=== PATIENT | male | born 1930 | race Caucasian/White ===

== ENCOUNTER → 2016-12-10 | Outpatient (CLI) | payer MEDICARE, OTHER ==
[2016-12-10 13:36] LABS: EKG EKG PERFORMED
[2016-12-10 15:13] LABS: ALT 30 U/L (21-72); AST 24 U/L (17-59); Alkaline Phosphatase 97 U/L (38-126); Anion Gap 14 mmol/L; Blood Urea Nitrogen 22 mg/dL (9-20); Calcium 9.3 mg/dL (8.4-10.2); Carbon Dioxide 23 mmol/L (22-30); Chloride 105 mmol/L (98-107); Glucose 99 mg/dL (74-99); INR 1.2 (<1.1); Non-African American GFR(MDRD) >60 (>60 ml/min/1.73 sqM); Partial Thromboplastin Time 23.3 sec (22.0-30.0); Potassium 4.4 mmol/L (3.5-5.1); Prothrombin Time 11.9 sec (9.0-12.0); Sodium 142 mmol/L (137-145); Total Bilirubin 0.6 mg/dL (0.2-1.3); Total Protein 6.9 g/dL (6.3-8.2)
[2016-12-10 15:31] LABS: Aty Lym Flag Moderate; CH 31.2; CHCM 31.9; HCT 42.8 % (39.0-53.0); HDW 2.19; HGB 13.7 gm/dL (13.0-17.5); MCH 31.4 pg (25.0-35.0); MCHC 31.9 g/dL (31.0-37.0); MCV 98.4 fL (80.0-100.0); RBC 4.36 m/uL (4.30-5.90); RDW 14.3 % (11.5-15.5); WBC (Perox) 60.62
[2016-12-10 17:51] LABS: Add Differential Manual Differential
[2016-12-10 17:54] LABS: Nucleated Red Blood Cells 0 /100 WBC (0-0); Total Cells Counted 100
[2016-12-10 17:55] LABS: Manual Review Performed; Ovalocytes Present
== END | disposition home or self-care (01) ==
LOC: LABPAT 13:26
PROVIDERS: ATTEND Orthopaedic Surgery
DX: Z01.810 Encounter for preprocedural cardiovascular examination (principal); Z01.812 Encounter for preprocedural laboratory examination
CPT/HCPCS: 80053; 85025; 85610; 85730; 87070; 93005

== ENCOUNTER → 2016-12-23 | Outpatient (CLI) | payer MEDICARE, OTHER | END | disposition home or self-care (01) | LOC: LABPAT 14:40 | PROVIDERS: ATTEND Orthopaedic Surgery | DX: Z01.812 Encounter for preprocedural laboratory examination (principal); R94.31 Abnormal electrocardiogram [ECG] [EKG]; I10 Essential (primary) hypertension; I25.2 Old myocardial infarction; Z85.6 Personal history of leukemia | CPT/HCPCS: 93005 ==

== ENCOUNTER 2016-12-24 05:50 | Inpatient (IN) | payer MEDICARE, OTHER ==
[2016-12-16 16:11] VITALS: BMI 24.3
[~2016-12-24 05:50] MED LIST: ACETAMINOPHEN TAB 500 MG TAB PO ONE; DEXAMETHASONE SOD PHOSPHATE 10 MG/ML 1 ML VIAL IV ONE; HYDROmorphone 1 MG/ML 1 ML SYRINGE IVP PRN; LIDOCAINE 1% 20 ML VIAL (10MG/ML) FOR IV START INTRADERMA PRN; MELOXICAM 7.5 MG TAB PO ONE; MIDAZOLAM 2 MG/2 ML VIAL IV PRN; ONDANSETRON 4 MG/2 ML VIAL IVP ONE; SCOPOLAMINE 1.5MG/72HR PATCH TRANSDERM ONE; TRANEXAMIC ACID 1,000 MG in SODIUM CHLORIDE 0.9% 100 ML IVPB ONE; ceFAZolin 2 GM in SODIUM CHLORIDE 0.9% 100 ML IVPB ONE
[2016-12-24] MEDS ORDERED: ROPIVACAINE 246.25 MG, EPINEPHrine 0.5 MG, KETOROLAC 30 MG, cloNIDine HCL/PF 80 MCG, WA... MISCELLANE ONE ×5 (05:52)
[2016-12-24] MEDS: LACTATED RINGERS 1,000 ML IV SCH ×2 (06:40→19:37)
[2016-12-24] MEDS ORDERED: LIDOCAINE 1% 20 ML VIAL (10MG/ML) FOR IV START INTRADERMA ONE (06:40)
[2016-12-24 06:47] LABS: Amorphous Sediment,Urine Occasional /hpf; Appearance,Urine Turbid (Clear); Bilirubin,Urine Negative (Negative); Glucose,Urine (UA) Negative (Negative); Ketones,Urine Negative (Negative); Leukocyte Esterase,Urine Small (Negative); Mucus,Urine Few /hpf; Nitrite,Urine Negative (Negative); PH, Urine 5.5 (5.0-8.0); Particle Count 57919; Protein,Urine Negative (Negative); RBC,Urine 3 /hpf (0-5); Specific Gravity,Urine 1.021 (1.001-1.035); Squamous Epithelial Cell,Urine <1 /hpf (0-4); UA Billing (MACRO vs. MICRO) MICRO; Urobilinogen,Urine <2.0 mg/dL (<2.0); WBC,Urine 7 /hpf (0-5)
[2016-12-24] MEDS ORDERED: SODIUM CHLORIDE 0.9% 100 ML BAG ONE (07:30)
[2016-12-24] MEDS ORDERED: MIDAZOLAM 2 MG/2 ML VIAL ONE (07:30)
[2016-12-24] MEDS ORDERED: ceFAZolin 3,000 MG in SODIUM CHLORIDE 0.9% IRRIGATIO 3,000 ML IRRIGATION ONE (07:30)
[2016-12-24] MEDS ORDERED: PHENYLEPHRINE-0.9% NACL SYG 1 MG/10 ML SYRINGE ONE (07:30)
[2016-12-24] MEDS ORDERED: PROPOFOL 10 MG/ML 20 ML VIAL IV ONE (07:30)
[2016-12-24] MEDS ORDERED: ePHEDrine 50 MG/ML 1 ML AMP ONE (07:30)
[2016-12-24] MEDS ORDERED: TRANEXAMIC ACID 1,000 MG/10 ML VIAL ONE (07:30)
[2016-12-24] MEDS ORDERED: diphenhydrAMINE 50 MG/ML 1 ML VIAL ONE (07:30)
[2016-12-24] MEDS ORDERED: NALOXONE 0.4 MG/ML 1 ML VIAL IV PRN (07:31)
[2016-12-24] MEDS ORDERED: MAGNESIUM HYDROXIDE 2,400 MG/10 ML CUP PO PRN (07:31)
[2016-12-24] MEDS ORDERED: ONDANSETRON 4 MG/2 ML VIAL IVP PRN (07:31)
[2016-12-24] MEDS ORDERED: HYDROmorphone 1 MG/ML 1 ML SYRINGE IVP PRN ×3 (07:31)
[2016-12-24] MEDS ORDERED: hydrOXYzine PAMOATE 25 MG CAP PO PRN (07:31)
[2016-12-24] MEDS ORDERED: DIAZEPAM 5 MG TAB PO PRN ×2 (07:31)
[2016-12-24] MEDS ORDERED: HYDROcodone/APAP 5-325MG 1 EACH TAB PO PRN ×2 (07:31)
[2016-12-24] MEDS ORDERED: THROMBIN (BOVINE) 5,000 UNIT VIAL MISCELLANE ONE (08:56)
[2016-12-24] MEDS ORDERED: LACTATED RINGERS 1,000 ML IV ONE (09:00)
--- NOTE | 2016-12-24 09:02 | FL ---
EXAMINATION TYPE: FL guidance operating room, XR Hip Limited RT DATE OF EXAM: 12/24/2016 8:54 AM CLINICAL HISTORY: Right hip replacement surgery TECHNIQUE: Fluoroscopy. Limited intraoperative views right hip. COMPARISON: None. FINDINGS: Fluoroscopic guidance was provided during right hip arthroplasty procedure performed by Dr Brendan Antonio. A total of 33 seconds of fluoroscopic time was utilized during the procedure and 2 spot images are acquired. Images acquired metallic hardware from frontal projection felt satisfactory in position. IMPRESSION: As Above.
--- NOTE | 2016-12-24 09:14 | P.OP ---
Date of Procedure: 12/24/16 Preoperative Diagnosis: Severe osteoarthritis right hip Postoperative Diagnosis: Severe osteoarthritis right hip Procedure(s) Performed: Right total hip arthroplasty with a direct anterior approach Implants: Anglin and nephew Polarstem size 8 standard with a collar Anglin [employer] Nephew R3, 3 hole acetabular shell, 54 mm [employer]in [employer] Nephew reflection 6.5 mm cancellus screw, 25 mm, 20mm Anglin [employer] Nephew R3, XLPE 20 acetabular liner Anglin [employer] Nephew Oxinium femoral head 36 m, +0 All components were press-fit. The articulation is ceramic on polyethylene. Anesthesia: spinal Surgeon: Jesse Antonio Marketing Representative #1: Kareen Benjamin Estimated Blood Loss (ml): 250 (68 mL returned with Cell Saver) Pathology: other (Femoral head) Condition: stable Disposition: PACU Indications for Procedure: After failure of conservative treatment we discussed the surgical and nonsurgical treatment options at length. Patient wishes to proceed with a total hip arthroplasty with a direct anterior approach. Complications specific to this procedure were discussed at length, including but not limited to infection, leg length discrepancy, dislocation, and nerve injury. Patient is aware of all these complications and informed consent was obtained Operative Findings: The operative findings are consistent with severe osteoarthritis of the right hip Description of Procedure: Patient was seen and evaluated in the preoperative area, consent was reviewed, and the surgical site was marked with a skin marker. Patient was then brought to the operating room and given prophylactic antibiotics intravenously. 1 g of Tranexamic acid was also given. A spinal anesthetic was administered by the anesthesia department. A Raza catheter was then placed by the nursing staff. The patient was then placed on the hand table with the bony prominences well- padded. The hip area was then prepped and draped in usual sterile fashion. A universal timeout was then performed, which confirmed the patient's name, surgical site, ALLERGIES, and procedure being performed. Next the incision site was located at 1 cm distal and 1 cm lateral to the anterior superior iliac spine. The skin and subcutaneous tissues were sharply incised. Incision was carefully dissected down to the fascia overlying the tensor fascia sweta muscle. This fascia was then incised in line with the incision. Next, using blunt finger dissection, the tensor fascia sweta muscle was dissected off its investing fascia. The muscle was then carefully retracted laterally with a cobra retractor over the lateral neck of the femur. Next, the circumflex vessels were identified and cauterized using the AquaMantis device. The anterior hip capsule was then exposed. The capsule was then opened and an inverted T fashion. Retention sutures were placed in the inferior arms of the capsule. Cobra retractors were then placed intracapsularly. The proximal femur was then visualized. The femoral neck was then osteotomized appropriate level above the lesser trochanter. Small amount of traction was placed with the hand table. A small wedge of bone was then removed from the remaining femoral head. Next, using a corkscrew femoral head was easily removed from the acetabulum. On gross visual inspection, the femoral head had complete loss of articular cartilage in multiple periarticular osteophytes. Attention was then turned to the acetabulum. the acetabulum was exposed and any remaining labrum was excised. Sequential reaming of the acetabulum was performed using fluoroscopic guidance. When the appropriate size was reached, a trial was then placed. The position and fit of the trial was checked with fluoroscopy. The trial was then removed. Then, using fluoroscopic guidance, the final implant was impacted at 20 of anteversion and 40 of abduction, and fully seated in the acetabulum. 2 screws were then placed in the acetabulum. Again fluoroscopy was used to check position of the screws. Next, the liner was then impacted, with a 20 elevated liner located in the anterior superior quadrant. Component locking was confirmed. Attention was then directed to the femur. With the aid of the Dotty table, the femur was externally rotated to approximately 130, extended, and abducted under the opposite leg. A side hook was then placed under the proximal femur, and the side hook elevator was used to elevate the proximal femur. Retractors were then placed. A capsular release was performed, as well as a release of the conjoined tendon, which afforded excellent visualization of the proximal femur. Next, a box osteotome was used to lateralize the proximal femur. A associate merchandiser was then used to locate the femoral canal. Sequential broaching was then performed with appropriate size which afforded excellent fixation in the proximal femur. The calcar was then planed. A trial was then placed with appropriate head and neck, and the hip was gently reduced with the aid of the Dotty table. Fluoroscopy was then used to check position of the components, as well as to ensure equal leg lengths. The hip was then gently dislocated and the trials were then removed. Final implants were then impacted and the hip was again reduced. Final fluoroscopic x-rays confirmed that the components were in anatomic position, as well as equal leg lengths. The hip was also taken through range of motion, and found to be stable. The hip was then copiously irrigated with antibiotic solution with pulsatile lavage. The soft tissues were then injected with ropivacaine solution. A second dose of 1 g of Tranexamic acid was given. the fascia was then closed with 2-0 strata fix suture. The subcutaneous tissue was closed with 3-0 Vicryl. The subcuticular tissue was closed with 30 strata fix suture. The skin was then closed with Dermabond tape. The patient was then transferred to the recovery room in stable condition. The Asst. Kareen Benjamin was required due to the complexity of surgery, and the need for skilled statistical assistant for positioning, draping, exposure, retraction, and closure of the wound.and closure of the wound.
--- NOTE | 2016-12-24 09:56 | XR ---
EXAMINATION TYPE: XR Hip Limited RT DATE OF EXAM: 12/24/2016 9:47 AM CLINICAL HISTORY: Right hip replacement surgery. TECHNIQUE: Single AP portable view of right hip is obtained immediately postoperatively. COMPARISON: None. FINDINGS: Metallic hardware from right hip arthroplasty is seen and appears satisfactory in alignment and position. There is evidence of recent surgery with subcutaneous gas noted at hip joint. The luis daniel unt of focal gas is slightly prominent lateral to the acetabular component IMPRESSION: Metallic hardware from right hip arthroplasty is satisfactory in position.
[2016-12-24] MEDS: ceFAZolin 2 GM in SODIUM CHLORIDE 0.9% 100 ML IVPB SCH ×2 (15:12→23:39)
[2016-12-24] MEDS: SODIUM CHLORIDE 0.9% 1,000 ML IV SCH ×2 (16:02→23:43)
[2016-12-24] MEDS: CARVEDILOL 6.25 MG TAB PO SCH (19:53)
[2016-12-24] MEDS: SENNOSIDES-DOCUSATE SODIUM 1 EACH TAB PO SCH (19:53)
[2016-12-24] MEDS: ASPIRIN 325 MG TAB PO SCH (19:54)
[2016-12-24] MEDS ORDERED: ASPIRIN 325 MG TAB PO SCH (21:00)
--- NOTE | 2016-12-24 21:18 | CONS ---
Patient is a very pleasant 89-year-old gentleman admitted for right hip arthroplasty and Medicine was consulted for antihypertensive management, postoperative hypotension. Patient is on Coreg and patient does have history of coronary artery disease and myocardial infarction in the past. Patient is on Coreg and lisinopril. Apparently blood pressure is always on the low side. Patient does not have any history of congestive heart failure. Patient denied any fever, chills. Patient denied any dysuria. Patient is on multiple narcotic medications which are not advisable because of his age. Those were discontinued and patient was started on ketorolac and GI prophylaxis, although DVT prophylaxis I will defer to Primary and Orthopedic services and patient does have mild to moderate dementia, because of which opiates, benzodiazepines and anticholinergic medications or not recommended. REVIEW OF SYSTEMS: CARDIOVASCULAR: No chest pain, no orthopnea, no PND, no palpitations. PULMONARY: Denied any shortness of breath. No cough or hemoptysis. GASTROINTESTINAL: No diarrhea, nausea or vomiting. No abdominal pain. Normoactive bowel sounds. NEUROLOGIC: No headaches, no weakness, no numbness. All other systems were reviewed and were negative. HOME MEDICATIONS: 1. Multivitamin. 2. Lisinopril. 3. Coreg. 4. Cyanocobalamin. 5. Aspirin. 6. Ascorbic acid. PAST MEDICAL HISTORY: Significant for coronary artery disease, cancer, dementia, mild to moderate; hyperlipidemia, hypertension, myocardial infarction in the past, osteoarthritis, cardiac catheterization and stent placement in the past, joint replacement surgery. Former smoker. Quit smoking in 1968. Denied any alcohol abuse or any drug abuse. Family history significant for cancer. PHYSICAL EXAMINATION: VITAL SIGNS: Temperature 97.2, pulse of 69, respiratory rate of 17, blood pressure is 97/58, saturating at 94% on 2L of O2 by nasal cannula. GENERAL: The patient is alert and oriented x3, not in any acute distress. Well developed, well nourished. HEENT: Pupils are round and equally reacting to light. EOMI. No scleral icterus. No conjunctival pallor. Normocephalic, atraumatic. No pharyngeal erythema. No thyromegaly. CARDIOVASCULAR: S1 and S2 present. No murmurs, rubs, or gallops. PULMONARY: Chest is clear to auscultation, no wheezing or crackles. ABDOMEN: Soft, nontender, nondistended, normoactive bowel sounds. No palpable organomegaly. MUSCULOSKELETAL: No joint swelling or deformity. EXTREMITIES: No cyanosis, clubbing, or pedal edema. NEUROLOGICAL: Gross neurological examination did not reveal any focal deficits. SKIN: No rashes. LABORATORY DATA: None available today. Hip x-ray was reviewed. ASSESSMENT AND PLAN: 1. Right hip arthroplasty, postoperative day 0. Patient ( ). Deep venous thrombosis prophylaxis as per Primary Service. Regarding pain management, I discontinued all the opiates, anticholinergic medications, although I am continuing [place] on as-needed basis if ketorolac does not help. The patient at this point of time does not have any pain. 2. History of coronary artery disease. Patient is on beta jus. Patient does not have any history of congestive heart failure. Patient is not diabetic. Lisinopril is not much beneficial, probable needs to be discontinued even at home, as his blood pressures are consistently low at home. 3. I will continue to follow the patient and reassess his blood pressure. 4. Dementia, mild to moderate. As mentioned above, avoid any narcotics. 5. Hyperlipidemia. 6. For the above-mentioned chronic medical problems, we will go ahead and continue his home medications. Although the patient is not on any statin, I will discuss with the patient why he is not on any statin after myocardial infarction. ROLF
[2016-12-24] MEDS: KETOROLAC 30 MG/ML 1 ML VIAL IVP PRN (23:39)
[2016-12-25 05:54] LABS: Glucose,Whole Blood 166 mg/dL (75-99)
[2016-12-25] MEDS: KETOROLAC 30 MG/ML 1 ML VIAL IVP PRN ×3 (05:54→17:48)
[2016-12-25] MEDS: CYANOCOBALAMIN 500 MCG TAB PO SCH (07:42)
[2016-12-25 08:16] LABS: Aty Lym Flag Moderate; CH 31.6; CHCM 33.2; HCT 30.3 % (39.0-53.0); HDW 2.33; MCH 31.4 pg (25.0-35.0); MCHC 32.7 g/dL (31.0-37.0); MCV 95.9 fL (80.0-100.0); Mean Platelet Volume 8.4; RBC 3.15 m/uL (4.30-5.90); RDW 14.3 % (11.5-15.5); WBC (Perox) 58.41
[2016-12-25 08:32] LABS: WBC 59.8 k/uL (3.8-10.6)
[2016-12-25 08:33] LABS: HGB 9.9 gm/dL (13.0-17.5)
[2016-12-25] MEDS ORDERED: MELOXICAM 7.5 MG TAB PO SCH (09:00)
[2016-12-25] MEDS ORDERED: ASPIRIN 81 MG CHEW PO SCH (09:00)
[2016-12-25 09:48] LABS: Add Differential Manual Differential
[2016-12-25 09:50] LABS: Manual Review Performed; Nucleated Red Blood Cells 0 /100 WBC (0-0); Total Cells Counted 200
[2016-12-25] MEDS: CARVEDILOL 6.25 MG TAB PO SCH ×2 (10:12→15:07)
[2016-12-25] MEDS: MULTIVITAMINS, THERA 1 EACH TAB PO SCH (10:12)
[2016-12-25] MEDS: ASPIRIN 325 MG TAB PO SCH ×2 (10:12→22:15)
[2016-12-25] MEDS: ASCORBIC ACID 500 MG TAB PO SCH (10:12)
--- NOTE | 2016-12-25 10:41 | P.PN ---
Subjective Principal diagnosis: Status post right total hip arthroplasty This is a pleasant 86-year-old gentleman who is status post right total hip arthroplasty with anterior approach. Today's postoperative day #1. The patient is seen and evaluated at bedside this morning. His family is present. He has some baseline dementia. He denies pain at this time. He did get up ambulating to the restroom this morning. Patient apparently had a vasovagal episode at that time and an A team was called. Medicine was notified Objective - Vital Signs Vital signs: Vital Signs Temp 97.4 F L 12/25/16 07:00 Pulse 77 12/25/16 10:10 Resp 16 12/25/16 08:00 BP 117/53 12/25/16 10:10 Pulse Ox 95 12/25/16 07:00 Intake & Output 12/24/16 12/25/16 12/25/16 18:59 06:59 18:59 Intake Total 1471 Output Total 350 700 100 Balance 1121 -700 -100 Weight 77.111 kg 77.111 kg Intake: IV 1351 Sodium Chloride 0.9% 1, 150 000 ml @ 50 mls/hr IV . [facility] Rx#:[id number] Oral 120 Output: Urine 100 700 100 Uretheral (Raza) 700 Estimated Blood Loss 250 Other: Voiding Method Indwelling Catheter Indwelling Catheter Indwelling Catheter - Exam The patient does not appear in acute distress. Alert and answers questions appropriately. He has baseline dementia Dressing is clean dry and intact. Incision appears fine with no erythema or active drainage. He is able to perform active flexion at the knee. He is able to lift the leg up off the bed. Calf is soft and nontender. Good foot and ankle motion without difficulty. Sensation and circulatory status is intact. - Labs CBC & Chem 7: 12/25/16 07:28 Labs: Abnormal Lab Results - Last 24 Hours (Table) 12/25/16 12/25/16 Range/Units 05:51 07:28 WBC 59.8 H* (3.8-10.6) k/uL RBC 3.15 L (4.30-5.90) m/uL Hgb 9.9 L D (13.0-17.5) gm/dL Hct 30.3 L (39.0-53.0) % Plt Count 144 L (150-450) k/uL Lymphocytes # (Manual) 52.3 H (1.0-4.8) k/uL POC Glucose (mg/dL) 166 H (75-99) mg/dL Assessment and Plan (1) Primary localized osteoarthritis of right hip Status: Acute (2) Status post right hip replacement Status: Acute Plan: Continue with routine postoperative care. Appreciate input from medicine. Anticoagulation with aspirin. We'll follow patient closely. The patient may require a sitter and his family is not present which was discussed with nursing staff. Anticipate transfer to rehab likely on Friday.
[2016-12-25] MEDS ORDERED: ALPRAZolam 0.5 MG TAB PO PRN (20:12)
--- NOTE | 2016-12-25 21:46 | PN ---
Patient is an 86-year-old admitted for right hip arthroplasty. Patient is otherwise clinically doing well. Patient is hypotensive. Patient was lightheaded today and patient had apparently had a syncopal episode as well. Because of that reason, I will go discontinue Coreg which I am changing to metoprolol sustained-release instead of Coreg. Patient is high risk for falls. Considering that, patient's diastolic are low and systolic blood pressures are low as well, so I do not recommend lisinopril, as there is not much benefit, as patient does not appear to have CHF or any diabetes mellitus. Patient will be started on donepezil as well as per the request of the family members. REVIEW OF SYSTEMS: CARDIOVASCULAR: No chest pain, no orthopnea, no PND, no palpitations. PULMONARY: Denied any shortness of breath. No cough or hemoptysis. GASTROINTESTINAL: No diarrhea, nausea or vomiting. No abdominal pain. Normoactive bowel sounds. NEUROLOGIC: No headaches, no weakness, no numbness. Medications were reviewed. PHYSICAL EXAMINATION: VITAL SIGNS: Temperature 98.4, pulse of 77, respiratory rate of 16, blood pressure is 98/58, saturating at 96% on room air. GENERAL: Patient is alert and oriented x2 to 3, which is his baseline. HEENT: Pupils are round and equally reacting to light. EOMI. No scleral icterus. No conjunctival pallor. Normocephalic, atraumatic. No pharyngeal erythema. No thyromegaly. CARDIOVASCULAR: S1 and S2 present. No murmurs, rubs, or gallops. PULMONARY: Chest is clear to auscultation, no wheezing or crackles. ABDOMEN: Soft, nontender, nondistended, normoactive bowel sounds. No palpable organomegaly. MUSCULOSKELETAL: No joint swelling or deformity. EXTREMITIES: No cyanosis, clubbing, or pedal edema. NEUROLOGICAL: Gross neurological examination did not reveal any focal deficits. SKIN: No rashes. LABORATORY DATA: CBC showed highly elevated WBC count of 59,800, a lymphocytic predominance. 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 ASSESSMENT AND PLAN: 1. Right hip arthroplasty, postoperative day 1. Patient is clinically doing well. No further recommendations from my perspective. 2. Hypotension, because of which I changed the medications as mentioned above. 3. Coronary artery disease. 4. 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 No further intervention. Will need to follow with Hematology as an outpatient. 5. Dementia, mild to moderate, for which patient was started on donepezil. 6. Hyperlipidemia. 7. 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
[2016-12-25] MEDS: SENNOSIDES-DOCUSATE SODIUM 1 EACH TAB PO SCH (22:16)
[2016-12-25] MEDS: DONEPEZIL 5 MG TAB PO SCH (22:16)
[2016-12-26] MEDS: KETOROLAC 30 MG/ML 1 ML VIAL IVP PRN (00:52)
[2016-12-26] MEDS ORDERED: HALOPERIDOL LACTATE 5 MG/ML 1 ML VIAL IM ONE (02:36)
[2016-12-26] MEDS: SODIUM CHLORIDE 0.9% 1,000 ML IV SCH ×2 (03:24→20:19)
--- NOTE | 2016-12-26 09:18 | P.PN ---
Subjective Principal diagnosis: Status post right total hip arthroplasty This is a 86 year-old male post hip arthroplasty. This is post-op day 2. The patient was evaluated at the bedside today. The patient denies nausea, vomiting , abdominal pain, shortness of breath, and chest pain this morning. He states his pain is controlled at this time. The patient has a history of baseline dementia and currently has a sitter at the bedside. Objective - Vital Signs Vital signs: Vital Signs Temp 98.5 F 12/26/16 07:00 Pulse 91 12/26/16 09:10 Resp 18 12/26/16 07:00 BP 118/53 12/26/16 09:10 Pulse Ox 95 12/26/16 07:44 Intake & Output 12/25/16 12/26/16 12/26/16 18:59 06:59 18:59 Intake Total 360 200 Output Total 102 886 2 Balance 258 -686 -2 Weight 77.111 kg 77.111 kg Intake: Oral 360 200 Output: Urine 102 400 2 Uretheral (Raza) 400 Post Void Residual 486 Other: Voiding Method Toilet Diaper # Voids 1 1 - Exam The patient does not appear in acute distress. Alert and orientated x3. Dressing is clean dry and intact. Incision appears fine with no erythema or active drainage. Calf is soft and nontender. Good foot and ankle motion without difficulty. Sensation and circulatory status is intact. - Labs CBC & Chem 7: 12/25/16 07:28 Labs: Abnormal Lab Results - Last 24 Hours (Table) 12/25/16 Range/Units 07:28 WBC 59.8 H* (3.8-10.6) k/uL RBC 3.15 L (4.30-5.90) m/uL Hgb 9.9 L D (13.0-17.5) gm/dL Hct 30.3 L (39.0-53.0) % Plt Count 144 L (150-450) k/uL Lymphocytes # (Manual) 52.3 H (1.0-4.8) k/uL Assessment and Plan (1) Primary localized osteoarthritis of right hip Status: Acute (2) Status post right hip replacement Status: Acute Plan: 1. Continue pain control 2. Anticoagulation with Aspirin 3. Continue physical therapy and ambulation 4. Anticipate discharge to skilled rehab tomorrow
[2016-12-26] MEDS ORDERED: HALOPERIDOL LACTATE 5 MG/ML 1 ML VIAL IM PRN (13:24)
[2016-12-26] MEDS: METOPROLOL SUCCINATE (ER) 50 MG TAB.ER.24H PO SCH (14:17)
[2016-12-26] MEDS: MULTIVITAMINS, THERA 1 EACH TAB PO SCH (14:17)
[2016-12-26] MEDS: ASCORBIC ACID 500 MG TAB PO SCH (14:17)
[2016-12-26] MEDS: CYANOCOBALAMIN 500 MCG TAB PO SCH (14:17)
[2016-12-26] MEDS: ASPIRIN 325 MG TAB PO SCH ×2 (14:17→20:31)
[2016-12-26] MEDS: SENNOSIDES-DOCUSATE SODIUM 1 EACH TAB PO SCH (20:31)
[2016-12-26] MEDS: DONEPEZIL 5 MG TAB PO SCH (20:32)
[2016-12-27 08:09] LABS: Aty Lym Flag Moderate; CH 31.7; CHCM 32.5; HCT 28.9 % (39.0-53.0); HDW 2.21; HGB 9.4 gm/dL (13.0-17.5); MCH 31.9 pg (25.0-35.0); MCHC 32.6 g/dL (31.0-37.0); MCV 97.9 fL (80.0-100.0); Mean Platelet Volume 7.9; RBC 2.95 m/uL (4.30-5.90); RDW 14.3 % (11.5-15.5); WBC (Perox) 63.19
[2016-12-27] MEDS: ASCORBIC ACID 500 MG TAB PO SCH (08:13)
[2016-12-27] MEDS: CYANOCOBALAMIN 500 MCG TAB PO SCH (08:13)
[2016-12-27] MEDS: METOPROLOL SUCCINATE (ER) 50 MG TAB.ER.24H PO SCH (08:14)
[2016-12-27] MEDS: MULTIVITAMINS, THERA 1 EACH TAB PO SCH (08:14)
[2016-12-27] MEDS: ASPIRIN 325 MG TAB PO SCH ×2 (08:14→20:10)
[2016-12-27 08:15] LABS: WBC 61.2 k/uL (3.8-10.6)
--- NOTE | 2016-12-27 10:20 | P.DS ---
Providers Date of admission: 12/24/16 05:50 Expected date of discharge: 12/27/16 Attending physician: Jesse Antonio Consults: 12/24/16 07:31 Consult Physician Routine Consulting Provider: Roni Rodriguez Consult Reason/Comments: medical management Do you want consulting provider notified?: Yes Primary care physician: Stated None - Discharge Diagnosis(es) (1) Primary localized osteoarthritis of right hip Current Visit: Yes Status: Acute (2) Status post right hip replacement Current Visit: Yes Status: Acute Hospital Course: This is an 86-year-old gentleman with history of CML, baseline dementia and coronary artery disease. Patient has Known history of degenerative arthritis of the right hip. Patient was seen in our office and after discussion consideration patient and family elected to proceed with right total hip arthroplasty. Patient was seen preoperatively and medically cleared for surgery by his primary care physician. Patient was admitted to [facility] 12/24/2016 and underwent right total hip arthroplasty. The procedure was performed without complication or sequelae. The patient's done well clinically postoperatively. He does have baseline confusion. He seen and evaluated at bedside. He has no complaints at this time. He is requiring very little for pain control. Dressing is clean dry and intact. Thigh and calf is soft and nontender. He has sustained dorsiflexion plantar flexion and extensor hallux longus. Sensation and circulatory status is intact. The patient is orthopedic medically stable for transfer to rehab once he's been cleared medically. Addendum: Patient was not accepted for rehab on Friday. Anticipate transfer to rehab today if arrangements can be arranged. Pertinent Studies: Laboratory Tests 12/10/16 12/27/16 13:30 06:47 WBC 61.2 H* RBC 2.95 L Hgb 9.4 L Hct 28.9 L MCV 97.9 MCH 31.9 MCHC 31.9 32.6 RDW 14.3 Plt Count 142 L Patient Condition at Discharge: Fair Plan - Discharge Summary New Discharge Prescriptions: Aspirin 325 mg PO BID #60 tab Donepezil [Aricept] 5 mg PO HS #30 tab Metoprolol Succinate (ER) [Toprol XL] 50 mg PO DAILY #30 tab QUEtiapine [SEROquel] 25 mg PO HS #30 tab Sennosides-Docusate Sodium [Senokot-S] 1 tab PO BID #60 tablet Discharge Medication List Ascorbic Acid [Vitamin C] 1,000 mg PO DAILY 12/16/16 [History] Aspirin 81 mg PO DAILY 12/16/16 [History] Cyanocobalamin [Vitamin B-12] 1,000 mcg PO DAILY 12/16/16 [History] Multivit-Min/FA/Lycopene/Lut [Centrum Silver Tablet] 1 tab PO DAILY 12/16/16 [ History] Aspirin 325 mg PO BID #60 tab 12/25/16 [Rx] Donepezil [Aricept] 5 mg PO HS #30 tab 12/25/16 [Rx] Metoprolol Succinate (ER) [Toprol XL] 50 mg PO DAILY #30 tab 12/25/16 [Rx] Sennosides-Docusate Sodium [Senokot-S] 1 tab PO BID #60 tablet 12/25/16 [Rx] QUEtiapine [SEROquel] 25 mg PO HS #30 tab 12/27/16 [Rx] Follow up Appointment(s)/Referral(s): Jesse Antonio DO [Doctor of Osteopathic Medicine] - 01/10/17 9:20 am Activity/Diet/Wound Care/Special Instructions: May bear weight as tolerated with walker. May shower if no drainage from incision. Acetaminophen 650 mg by mouth every 6 hours when necessary for pain Daily dressing changes Keep incision clean and dry [facility] with questions or concerns [phone] Discharge Disposition: TRANSFER TO SNF/ECF
[2016-12-27 12:20] LABS: Add Differential Manual Differential
[2016-12-27 14:11] LABS: Nucleated Red Blood Cells 0 /100 WBC (0-0); Total Cells Counted 200
--- NOTE | 2016-12-27 19:18 | PN ---
Patient is an 86-year-old admitted with a right hip arthroplasty and patient was having agitational episodes because of which patient was not accepted to subacute rehab today. Patient apparently had a one-on-one sitter. Patient's agitational episodes are secondary to delirium from hospitalization, which are only going to get better after he goes out of the hospital. Anyways, patient was started on Seroquel at nighttime to avoid any agitational episodes because of his dementia. REVIEW OF SYSTEMS: CARDIOVASCULAR: No chest pain, no orthopnea, no PND, no palpitations. PULMONARY: Denied any shortness of breath. No cough or hemoptysis. GASTROINTESTINAL: No diarrhea, nausea or vomiting. No abdominal pain. Normoactive bowel sounds. NEUROLOGIC: No headaches, no weakness, no numbness. Medications were reviewed. PHYSICAL EXAMINATION: VITAL SIGNS: Temperature is 97.9, pulse of 105, respiratory rate 16, blood pressure 130/56, saturating at 96% on 2 liters of O2 nasal cannula. GENERAL: Patient is alert and oriented times around 2 to 3 which is his baseline. HEENT: Pupils are round and equally reacting to light. EOMI. No scleral icterus. No conjunctival pallor. Normocephalic, atraumatic. No pharyngeal erythema. No thyromegaly. CARDIOVASCULAR: S1 and S2 present. No murmurs, rubs, or gallops. PULMONARY: Chest is clear to auscultation, no wheezing or crackles. ABDOMEN: Soft, nontender, nondistended, normoactive bowel sounds. No palpable organomegaly. MUSCULOSKELETAL: No joint swelling or deformity. EXTREMITIES: No cyanosis, clubbing, or pedal edema. NEUROLOGICAL: Gross neurological examination did not reveal any focal deficits. SKIN: No rashes. LABORATORY DATA: Elevated WBC count of 61,200. ASSESSMENT AND PLAN: 1. Right hip arthroplasty. Patient is clinically doing well and is ready to be discharged. 2. Agitational episodes and delirium secondary to do delirium from hospitalization. Patient is not on narcotic medications at this point of time. Patient will be started on Seroquel starting today. Patient can continue the Seroquel upon discharge. 3. Chronic myeloid leukemia. Follow up as an outpatient. 4. Coronary artery disease. 5. Dementia, which is moderate to severe. Patient is on donepezil, which may or may not benefit him. 6. Hyperlipidemia. 7. 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
[2016-12-27] MEDS: SENNOSIDES-DOCUSATE SODIUM 1 EACH TAB PO SCH (20:10)
[2016-12-27] MEDS: QUEtiapine 25 MG TAB PO SCH (20:11)
[2016-12-27] MEDS: DONEPEZIL 5 MG TAB PO SCH (20:11)
[2016-12-27] MEDS: SODIUM CHLORIDE 0.9% 1,000 ML IV SCH (20:13)
--- NOTE | 2016-12-28 09:18 | P.PN ---
Subjective Principal diagnosis: Status post right total hip arthroplasty This is a pleasant 86-year-old gentleman who is status post right total hip arthroplasty with anterior approach. Today's postoperative day #4. The patient is seen and evaluated at bedside this morning. His family is present. He has some baseline dementia. He denies pain at this time. Plan is for transfer to rehab once he's been accepted. Objective - Vital Signs Vital signs: Vital Signs Temp 98.1 F 12/28/16 04:00 Pulse 84 12/28/16 04:00 Resp 18 12/28/16 04:00 BP 184/79 12/28/16 04:00 Pulse Ox 97 12/28/16 04:00 Intake & Output 12/27/16 12/28/16 12/28/16 18:59 06:59 18:59 Intake Total 120 470 Output Total 2 Balance 118 470 Intake: Oral 120 470 Output: Urine 2 Other: Voiding Method Urinal Toilet Diaper Incontinent # Voids 1 1 - Exam The patient does not appear in acute distress. Alert and answers questions appropriately. He has baseline dementia. Dressing is clean dry and intact. Incision appears fine with no erythema or active drainage. He is able to perform active flexion at the knee. He is able to lift the leg up off the bed. Calf is soft and nontender. Good foot and ankle motion without difficulty. Sensation and circulatory status is intact. - Labs CBC & Chem 7: 12/27/16 06:47 Labs: Abnormal Lab Results - Last 24 Hours (Table) 12/27/16 Range/Units 06:47 WBC 61.2 H* (3.8-10.6) k/uL RBC 2.95 L (4.30-5.90) m/uL Hgb 9.4 L (13.0-17.5) gm/dL Hct 28.9 L (39.0-53.0) % Plt Count 142 L (150-450) k/uL Lymphocytes # (Manual) 57.5 H (1.0-4.8) k/uL Assessment and Plan (1) Primary localized osteoarthritis of right hip Status: Acute (2) Status post right hip replacement Status: Acute Plan: Continue with routine postoperative care. Appreciate input from medicine. Anticoagulation with aspirin. We'll follow patient closely. Anticipate transfer to rehab once he's been accepted. This was discussed with the nurse today.
[2016-12-28] MEDS: CYANOCOBALAMIN 500 MCG TAB PO SCH (10:57)
[2016-12-28] MEDS: MULTIVITAMINS, THERA 1 EACH TAB PO SCH (10:57)
[2016-12-28] MEDS: METOPROLOL SUCCINATE (ER) 50 MG TAB.ER.24H PO SCH (10:57)
[2016-12-28] MEDS: ASCORBIC ACID 500 MG TAB PO SCH (10:57)
[2016-12-28] MEDS: ASPIRIN 325 MG TAB PO SCH ×2 (10:58→20:01)
[2016-12-28] MEDS: ACETAMINOPHEN TAB 325 MG TAB PO PRN ×2 (11:20→23:38)
[2016-12-28] MEDS: SODIUM CHLORIDE 0.9% 1,000 ML IV SCH (13:09)
[2016-12-28] MEDS: DONEPEZIL 5 MG TAB PO SCH (20:01)
[2016-12-28] MEDS: SENNOSIDES-DOCUSATE SODIUM 1 EACH TAB PO SCH (20:01)
[2016-12-28] MEDS: QUEtiapine 25 MG TAB PO SCH (20:01)
[2016-12-29] MEDS: KETOROLAC 30 MG/ML 1 ML VIAL IVP PRN ×2 (01:40→08:29)
[2016-12-29 07:34] LABS: Aty Lym Flag Slight; CH 31.7; CHCM 32.8; HCT 28.9 % (39.0-53.0); HDW 2.41; HGB 9.1 gm/dL (13.0-17.5); MCH 30.5 pg (25.0-35.0); MCHC 31.4 g/dL (31.0-37.0); MCV 97.2 fL (80.0-100.0); RBC 2.98 m/uL (4.30-5.90); RDW 14.3 % (11.5-15.5); WBC (Perox) 54.06
[2016-12-29 07:54] LABS: WBC 54.5 k/uL (3.8-10.6)
[2016-12-29] MEDS: ASPIRIN 325 MG TAB PO SCH ×2 (08:25→20:01)
[2016-12-29] MEDS: CYANOCOBALAMIN 500 MCG TAB PO SCH (08:25)
[2016-12-29] MEDS: ASCORBIC ACID 500 MG TAB PO SCH (08:25)
[2016-12-29] MEDS: METOPROLOL SUCCINATE (ER) 50 MG TAB.ER.24H PO SCH (08:26)
[2016-12-29] MEDS: MULTIVITAMINS, THERA 1 EACH TAB PO SCH (08:26)
[2016-12-29] MEDS: SODIUM CHLORIDE 0.9% 1,000 ML IV SCH (08:26)
[2016-12-29] MEDS: ACETAMINOPHEN TAB 325 MG TAB PO PRN (08:29)
[2016-12-29 08:49] LABS: Add Differential Manual Differential
[2016-12-29 08:51] LABS: Nucleated Red Blood Cells 0 /100 WBC (0-0); Total Cells Counted 200
[2016-12-29 08:53] LABS: Manual Review Performed
--- NOTE | 2016-12-29 09:16 | P.PN ---
Subjective Principal diagnosis: Status post right total hip arthroplasty This is a pleasant 86-year-old gentleman who is status post right total hip arthroplasty with anterior approach. Today's postoperative day #5. The patient is seen and evaluated at bedside this morning. His family is present. He has some baseline dementia. He denies pain at this time. Plan is for transfer to rehab once he's been accepted. Objective - Vital Signs Vital signs: Vital Signs Temp 97.4 F L 12/29/16 07:00 Pulse 73 12/29/16 08:00 Resp 16 12/29/16 08:00 BP 170/74 12/29/16 07:00 Pulse Ox 95 12/29/16 07:00 Intake & Output 12/28/16 12/29/16 12/29/16 18:59 06:59 18:59 Intake Total 360 Output Total 300 Balance 60 Weight 77.111 kg Intake: Oral 360 Output: Urine 300 Other: Voiding Method Toilet Toilet # Voids 1 1 1 # Bowel Movements 1 1 - Exam The patient does not appear in acute distress. Alert and answers questions appropriately. He has baseline dementia. Dressing is clean dry and intact. Incision appears fine with no erythema or active drainage. He is able to perform active flexion at the knee. Calf is soft and nontender. Good foot and ankle motion without difficulty. Sensation and circulatory status is intact. - Labs CBC & Chem 7: 12/29/16 06:25 Labs: Abnormal Lab Results - Last 24 Hours (Table) 12/29/16 Range/Units 06:25 WBC 54.5 H* (3.8-10.6) k/uL RBC 2.98 L (4.30-5.90) m/uL Hgb 9.1 L (13.0-17.5) gm/dL Hct 28.9 L (39.0-53.0) % Lymphocytes # (Manual) 50.4 H (1.0-4.8) k/uL Basophils # (Manual) 0.3 H (0-0.2) k/uL Assessment and Plan (1) Primary localized osteoarthritis of right hip Status: Acute (2) Status post right hip replacement Status: Acute Plan: Continue with routine postoperative care. Appreciate input from medicine. Anticoagulation with aspirin. We'll follow patient closely. Anticipate transfer to rehab once he's been accepted, likely tomorrow.
[2016-12-29] MEDS: SENNOSIDES-DOCUSATE SODIUM 1 EACH TAB PO SCH (20:01)
[2016-12-29] MEDS: DONEPEZIL 5 MG TAB PO SCH (20:01)
[2016-12-29] MEDS: QUEtiapine 25 MG TAB PO SCH (20:01)
[2016-12-30] MEDS: SODIUM CHLORIDE 0.9% 1,000 ML IV SCH (00:14)
[2016-12-30] MEDS: ACETAMINOPHEN TAB 325 MG TAB PO PRN (03:35)
[2016-12-30] MEDS: METOPROLOL SUCCINATE (ER) 50 MG TAB.ER.24H PO SCH (07:31)
[2016-12-30] MEDS: MULTIVITAMINS, THERA 1 EACH TAB PO SCH (07:31)
[2016-12-30] MEDS: ASPIRIN 325 MG TAB PO SCH (07:31)
[2016-12-30] MEDS: ASCORBIC ACID 500 MG TAB PO SCH (07:31)
[2016-12-30] MEDS: CYANOCOBALAMIN 500 MCG TAB PO SCH (07:31)
[2016-12-30 07:41] VITALS: BP 140/64; PULSE 79; RESP 14; TEMP 97.6
--- NOTE | 2016-12-30 08:33 | P.PN ---
Subjective Principal diagnosis: Status post right total hip arthroplasty This is a pleasant 86-year-old gentleman who is status post right total hip arthroplasty with anterior approach. Today's postoperative day #6. The patient is seen and evaluated at bedside this morning. He has some baseline dementia. He has minimal pain at this time. Plan is for transfer to rehab once he's been accepted. Objective - Vital Signs Vital signs: Vital Signs Temp 97.6 F 12/30/16 07:00 Pulse 79 12/30/16 07:00 Resp 14 12/30/16 07:00 BP 140/64 12/30/16 07:00 Pulse Ox 98 12/30/16 07:00 Intake & Output 12/29/16 12/30/16 12/30/16 18:59 06:59 18:59 Intake Total 650 Output Total 300 Balance 650 -300 Weight 77.111 kg 77.111 kg Intake: Oral 650 Output: Urine 300 Other: Voiding Method Toilet Toilet # Voids 1 1 1 # Bowel Movements 1 1 1 - Exam The patient does not appear in acute distress. Alert and answers questions appropriately. He has baseline dementia. Dressing is clean dry and intact. Incision appears fine with no erythema or active drainage. He is able to perform active flexion at the knee. Calf is soft and nontender. Good foot and ankle motion without difficulty. Sensation and circulatory status is intact. - Labs CBC & Chem 7: 12/29/16 06:25 Labs: Abnormal Lab Results - Last 24 Hours (Table) 12/29/16 Range/Units 06:25 WBC 54.5 H* (3.8-10.6) k/uL RBC 2.98 L (4.30-5.90) m/uL Hgb 9.1 L (13.0-17.5) gm/dL Hct 28.9 L (39.0-53.0) % Lymphocytes # (Manual) 50.4 H (1.0-4.8) k/uL Basophils # (Manual) 0.3 H (0-0.2) k/uL Assessment and Plan (1) Primary localized osteoarthritis of right hip Status: Acute (2) Status post right hip replacement Status: Acute Plan: Continue with routine postoperative care. Appreciate input from medicine. Anticoagulation with aspirin. Anticipate transfer to rehab today.
--- NOTE | 2016-12-30 17:12 | P.PN ---
Subjective Date of service 12/30/2016. Progress note being dictated for Dr. Alegria. Interval history: This is an 86-year-old gentleman status post right total hip arthroplasty, delirium, dementia . Seroquel added to med regime last night, Agitation resolved. Participating/cooperative with physical therapy and occupational therapy. Pleasantly confused. Positive diet intake, positive bowel movement. Currently states pain controlled .Denies chest pain, palpitations or increasing shortness of breath. Objective - Vital Signs Vital signs: Vital Signs Temp 97.6 F 12/30/16 07:00 Pulse 79 12/30/16 08:00 Resp 14 12/30/16 08:00 BP 140/64 12/30/16 07:00 Pulse Ox 98 12/30/16 07:00 Intake & Output 12/29/16 12/30/16 12/30/16 18:59 06:59 18:59 Intake Total 650 236 Output Total 300 Balance 650 -64 Weight 77.111 kg 77.111 kg Intake: Oral 650 236 Output: Urine 300 Other: Voiding Method Toilet Toilet Toilet # Voids 1 1 1 # Bowel Movements 1 1 1 - Exam PHYSICAL EXAM: VITAL SIGNS: As above GENERAL: [Sitting up in bed, no acute distress, pleasantly confused, and on 2] HEENT: [Pupils equal conjunctiva normal, normocephalic] NECK: [Supple, no JVD] RESPIRATORY EFFORT:[Normal] LUNGS: [Clear, Diminished bases, no crackles, no wheezing] CARDIOVASCULAR[regular S1 and S2, no murmurs rubs or gallops, no edema] GI: [Abdomen soft, nontender, positive bowel sounds.] NEURO: [Gross neurological examination does not reveal any focal deficits] - Labs CBC & Chem 7: 12/29/16 06:25 Assessment and Plan Plan: 1. Right hip arthroplasty. 2. Agitation episodes secondary to delirium, related to hospitalization, currently resolved 3. [Chronic myeloid leukemia, follow up as outpatient]. 4. [CAD]. 5. 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 6. [Hyperlipidemia]. Plan: Continue on current medication regime ,monitoring and symptomatic treatment. Anticoagulation, pain management as per orthopedics. Cleared for discharge to [facility] rehab, pending authorization. The impression and plan of care has been dictated as directed. : I performed a H&P examination of this patient and discussed the same with the dictator. I agree with the dictator's note. Any additional findings/opinions/ etc. will be noted.
--- NOTE | 2017-03-13 15:23 | PN ---
ADDENDUM: DATE OF SERVICE: 12/30/2016 This is an addendum to the progress note that was done on 12/30/2016, progress note on 12/27/2016 and consultation that was done on 12/24/2016. Patient was hypotensive during the hospitalization and this is an expected outcome post surgery, not a complication of surgery. Once again, there is an expected outcome post surgery, not a complication of the surgery.
== END 2016-12-30 15:50 | DRG 470 ==
LOC: 2ORMAIN 05:50 → 3SUR 09:19
PROVIDERS: ADMIT Orthopaedic Surgery; ATTEND Orthopaedic Surgery
PROC: 0SR904A Replacement of Right Hip Joint with Ceramic on Polyethylene Synthetic Substitute, Uncemented, Open Approach (ICD-10-PCS; principal; 2016-12-24 07:00)
DX: M16.11 Unilateral primary osteoarthritis, right hip (principal); C92.10 Chronic myeloid leukemia, BCR/ABL-positive, not having achieved remission; I95.89 Other hypotension; F03.90 Unspecified dementia, unspecified severity, without behavioral disturbance, psychotic disturbance, mood disturbance, and anxiety; I10 Essential (primary) hypertension; I25.2 Old myocardial infarction; I25.10 Atherosclerotic heart disease of native coronary artery without angina pectoris; E78.5 Hyperlipidemia, unspecified; Z95.5 Presence of coronary angioplasty implant and graft; Z87.891 Personal history of nicotine dependence; Z79.82 Long term (current) use of aspirin; Z79.899 Other long term (current) drug therapy
CPT/HCPCS: 73501; 81001; 85025; 86850; 86900; 86901; 88300; 93005; 94760